=== PATIENT | female | born 1965 | race Caucasian/White ===

== ENCOUNTER → 2017-04-09 | Day surgery (SDC) | payer OTHER ==
[~2017-04-09] VITALS: Ht 170.2 cm; Wt 54.4 kg
[~2017-04-09] MED LIST: ESTR0.5T; PROG100C6 PO; Sodium Chloride LOK Flush 10 mL Syringe IV PRN; fentaNYL-PF 50 mCg/mL 2 mL Inj IVPUSH PRN
[2017-04-09 10:12] VITALS: BP 104/64; PULSE 62; RESP 16; O2SAT 96
[2017-04-09] MEDS: 0.9% Sodium Chloride 1,000 ML IV SCH ×2 (10:29→11:23)
--- NOTE | 2017-04-09 11:43 | PCM.ENDCOL ---
Colonoscopy Date of Service: Apr 09, 2017 Physician Masoud Carmen MD Pre Procedure Diagnosis: Screening worsening constipation Post Procedure Dx & Findings: Lipoma hemorrhoids Procedure Colonoscopy PROCEDURE IN DETAIL: Prep adequate Withdrawal time 17 minutes After unremarkable rectal examination the Olympus video colonoscope was inserted patient's anal canal and was advanced to cecum. Landmarks were identified including the ileocecal valve and appendiceal orifice. Scope advanced the terminal ileum which showed normal villous structures without any ulcer mass or erosion. Advanced 5 cm. Scope was withdrawn systematically. Visualized colonic mucosa showed healthy shiny mucosa with normal healthy- appearing vasculature. In the cecum, there was a 2 cm mild prominence in the cecum was yellowish tinge. The pillow sign. Biopsy obtained. At the biopsy site, there was evidence of adipose tissue. In the rectum retroflexion was done which showed hemorrhoids. Anal canal was inspected carefully on the way out and hemorrhoids noted. Impression No personal or family history of colon cancer or polyp. Constipation Lipoma Hemorrhoids Recommendation Repeat colonoscopy 10 years Presedation Assessment Risks and Benefits Informed consent was obtained from the patient after all risks and benefits including but not limited to drug reaction, infection, pain, bleeding, perforation, as well as alternatives were discussed. Patient monitoring Continuous pulse oximetry, cardiac monitoring, blood pressure monitoring, IV access, and oxygen at 2L per nasal cannula. Periprocedural Fentanyl: Fentanyl 100mcg Incrementally Midazolam: Midazolam 6mg Incrementally Complications There were no periprocedural complications identified. Post Procedure Plan Post Procedure Recommendations 1. Restrict activities today. 2. Resume normal activities in the morning. 3. Resume medications. 4. Patient informed of normal post procedure side effects as bloating, drowsiness, blood streaking in the stool. 5. average risk CRCS. If colon polyps come back as: -Hyperplastic- can repeat colonoscopy in 10 years -Tubular adenoma- repeat colonoscopy in 5 years -Tubulovillous/villous adenoma- repeat colonoscopy in 3 years -If any dysplasia- return to clinic as soon as possible 6. Please don't hesitate to call me with any questions. Masoud Carmen MD Apr 09, 2017 11:43
[2017-04-09 11:44] VITALS: BP 83/53; PULSE 77; RESP 15; O2SAT 99
[2017-04-09 11:55] VITALS: BP 93/58; PULSE 82; RESP 15; O2SAT 100
[2017-04-09 12:04] VITALS: BP 93/60; PULSE 66; RESP 12; O2SAT 100
--- NOTE | 2017-04-16 15:18 | PATH ---
SURGICAL PATHOLOGY Attending Physician:Masoud Carmen M.D. CASE STATUS: Signed Out PATIENT NAME: SHAHNAZ MERCEDES PID: [id number] : 1965 DATE COLLECTED:04/09/2017 20:00 SPECIMEN: Colon, Biopsy CLINICAL HISTORY: 1). CECAL BIOPSY FINAL DIAGNOSIS: Cecum, Biopsy: Colonic mucosa with focal submucosal mature adipose tissue consistent with lipoma. Additional levels were examined. Negative for atypia, epithelial dysplasia or malignancy. ICD10: K63.5 GROSS DESCRIPTION: The specimen is received in one formalin filled container labeled with the patient's name, sublabeled "cecal" and consists of a 0.2 x 0.2 x 0.2 CM portion of tissue which is entirely submitted in one cassette. 04/09/2017DC ICD-9 CODES: CPT CODES: 1: 62889 Electronically Signed Out Shandra Chowdary MD [facility] [address], [place] [address] Technical component performed at [facility], [facility] [address], [place], [address]
== END | disposition home or self-care (01) ==
LOC: END 08:24
PROVIDERS: ATTEND Internal Medicine
DX: Z12.11 Encounter for screening for malignant neoplasm of colon (principal); D17.79 Benign lipomatous neoplasm of other sites; K64.8 Other hemorrhoids; K59.00 Constipation, unspecified
CPT/HCPCS: 45380; 99153; G0500; J2250; J3010; J7030